=== PATIENT | female | born 1955 | race Caucasian/White ===

== ENCOUNTER 2023-10-14 14:54 | Inpatient (IN) | payer OTHER ==
[~2023-10-14] VITALS: Ht 157.5 cm; Wt 96.6 kg
[2023-10-14 15:11] VITALS: BP_SYST 156; PULSE 104; RESP 22; TEMP 98.3; O2SAT 98
[2023-10-14] MEDS ORDERED: METF-379 PO (19:19)
[2023-10-14] MEDS ORDERED: ATEN50TA PO (19:19)
[2023-10-14] MEDS: NACL 0.9% 1,000 ML IV ONE (19:48)
[2023-10-14 20:01] LABS: BASOPHILS % (AUTO) 0.5 % (0.0-2.0); EOSINOPHILS # (AUTO) 0.2 K/uL (0.0-0.4); EOSINOPHILS % (AUTO) 3.2 % (0.0-4.0); HEMATOCRIT 42.8 % (36-48); HEMOGLOBIN 14.4 g/dL (12.0-16.0); LYMPHOCYTES # (AUTO) 2.8 K/uL (1.0-5.5); LYMPHOCYTES % (AUTO) 47.4 % (20.5-51.5); MEAN CORPUSCULAR HEMOGLOBIN 31 pg (27-31); MEAN CORPUSCULAR HGB CONC 34 % (32-36); MEAN CORPUSCULAR VOLUME 91 fL (79.0-98.0); MONOCYTES # (AUTO) 0.4 K/uL (0.0-1.0); MONOCYTES % (AUTO) 7.2 % (1.7-9.3); NEUTROPHILS # (AUTO) 2.5 K/uL (1.8-7.7); NEUTROPHILS % (AUTO) 41.7 % (40.0-70.0); PLATELET COUNT (AUTO) 312 K/uL (130-430); RED BLOOD CELL COUNT(AUTO) 4.71 MIL/uL (4.2-6.2); WHITE BLOOD COUNT (AUTO) 5.9 K/uL (4.8-10.8)
[2023-10-14] MEDS ORDERED: ONDANSETRON HCL 4 MG/2 ML VIAL IVP PRN (20:15)
[2023-10-14] MEDS ORDERED: TEMAZEPAM 7.5 MG CAPSULE PO PRN (20:15)
[2023-10-14 20:17] LABS: ALBUMIN 3.7 g/dL (3.4-4.8); CALCIUM 9.2 mg/dL (8.4-11.0); CREATININE 0.96 mg/dL (0.55-1.30); POTASSIUM 3.6 mmol/L (3.5-5.1); TOTAL BILIRUBIN 0.5 mg/dL (0.0-1.0); TOTAL PROTEIN, SERUM 7.3 g/dL (6.4-8.3)
[2023-10-14 20:36] LABS: INR 0.9 (0.8-1.2); PROTHROMBIN TIME 9.9 SECS (9.5-12.5)
[2023-10-14 22:10] VITALS: BP_SYST 120; PULSE 69; RESP 18; TEMP 98.8; O2SAT 98
[2023-10-15] VITALS (8 sets, daily range): BP systolic 117–146; PULSE 63–78; RESP 16–18; TEMP 97.1–98.8; O2SAT 96–99
[2023-10-15] MEDS: D5/0.45 NS 1,000 ML IV SCH (07:45)
[2023-10-15 08:59] LABS: BILIRUBIN,URINE NEGATIVE (NEGATIVE); BLOOD, URINE NEGATIVE (NEGATIVE); CLARITY/URINE CLEAR (CLEAR); COLOR,URINE YELLOW (YELLOW); GLUCOSE,URINE NEGATIVE (NEGATIVE); KETONES,URINE NEGATIVE (NEGATIVE); LEUKOCYTE ESTERASE ,URINE TRACE (NEGATIVE); NITRITE, URINE NEGATIVE (NEGATIVE); PROTEIN URINE NEGATIVE (NEGATIVE); UROBILINOGEN,URINE 0.2 (0.2-1.0)
[2023-10-15 09:23] LABS: BACTERIA,URINE None Seen /HPF (None Seen); RBC,URINE 0-3 /HPF (0-3)
[2023-10-15 09:24] LABS: CALCIUM OXALATE CRYSTALS,UR 0-10 /HPF (None Seen)
[2023-10-15] MEDS: metFORMIN HCL 500 MG TABLET PO ONE (14:45)
[2023-10-15] MEDS: ATENOLOL 50 MG TABLET (TENORMIN) PO ONE (14:45)
[2023-10-15] MEDS ORDERED: SEVOFLURANE 15 MIN GAS INH ONE (16:30)
[2023-10-15] MEDS ORDERED: NS IRRIG SOLN 1000 ML IR ONE (16:30)
[2023-10-15] MEDS ORDERED: LR 1,000 ML IV.SOLN IV ONE (16:30)
[2023-10-15] MEDS ORDERED: ceFAZolin SODIUM 2 GM VIAL ONE (16:30)
[2023-10-15] MEDS ORDERED: SUCCINYLCHOLINE CHLORIDE 20 MG/ML(QUELICIN) ONE (16:30)
[2023-10-15] MEDS ORDERED: WATER FOR IRRIGATION,STERILE 1,000 ML IRRIG.SOLN IR ONE (16:30)
[2023-10-15] MEDS ORDERED: METOCLOPRAMIDE HCL 10 MG/2 ML VIAL ONE (16:30)
[2023-10-15] MEDS ORDERED: BUPIVACAINE /PF 0.25% 30 ML VIAL INJ ONE (16:30)
[2023-10-15] MEDS ORDERED: DEXAMETHASONE SOD PHOSPHATE 4 MG/ML VIAL ONE (16:30)
[2023-10-15] MEDS ORDERED: KETOROLAC TROMETHAMINE 30 MG VIAL ONE (16:30)
[2023-10-15] MEDS ORDERED: ONDANSETRON HCL 4 MG/2 ML VIAL ONE (16:30)
[2023-10-15] MEDS ORDERED: PROPOFOL 200MG/ 20ML VIAL (DIPRIVAN) IV ONE (16:30)
[2023-10-15] MEDS: HYDROmorphone 2 MG/ML VIAL ONE (16:31)
[2023-10-15] MEDS ORDERED: ONDANSETRON HCL 4 MG/2 ML VIAL IVP PRN (17:30)
[2023-10-15] MEDS ORDERED: NALOXONE HCL 0.4 MG/ML AMP (NARCAN) IVP PRN (17:30)
[2023-10-15] MEDS ORDERED: HYDROmorphone 1 MG/ML INJ. CARTRIDGE IVP PRN (17:30)
[2023-10-15] MEDS ORDERED: METOCLOPRAMIDE HCL 10 MG/2 ML VIAL IVP PRN (17:30)
[2023-10-15] MEDS ORDERED: MORPHINE 4 MG INJ. 4 MG/ML VIAL IVP PRN ×2 (17:30)
[2023-10-15] MEDS: CEFAZOLIN 2 GM IVPB PREMIX 50 ML IV SCH (22:30)
[2023-10-15] MEDS: MORPHINE 2 MG/ML INJ. SYRINGE IVP PRN (22:54)
[2023-10-16] VITALS: BP_SYST 104; PULSE 68; RESP 16; TEMP 97.2; O2SAT 95
[2023-10-16 07:46] LABS: BASOPHILS % (AUTO) 0.2 % (0.0-2.0); EOSINOPHILS % (AUTO) 0.2 % (0.0-4.0); HEMATOCRIT 32.9 % (36-48); HEMOGLOBIN 10.8 g/dL (12.0-16.0); LYMPHOCYTES # (AUTO) 1.5 K/uL (1.0-5.5); LYMPHOCYTES % (AUTO) 18.9 % (20.5-51.5); MEAN CORPUSCULAR HEMOGLOBIN 30 pg (27-31); MEAN CORPUSCULAR HGB CONC 33 % (32-36); MEAN CORPUSCULAR VOLUME 93 fL (79.0-98.0); MONOCYTES # (AUTO) 0.7 K/uL (0.0-1.0); MONOCYTES % (AUTO) 8.6 % (1.7-9.3); NEUTROPHILS # (AUTO) 5.8 K/uL (1.8-7.7); NEUTROPHILS % (AUTO) 72.1 % (40.0-70.0); PLATELET COUNT (AUTO) 243 K/uL (130-430); RED BLOOD CELL COUNT(AUTO) 3.55 MIL/uL (4.2-6.2); RED CELL DISTRIBUTION WIDTH 14.1 % (9.0-15.0)
[2023-10-16 08:00] VITALS: BP_SYST 132; PULSE 81; RESP 16; TEMP 97.8; O2SAT 93
[2023-10-16 08:26] LABS: CALCIUM 8.3 mg/dL (8.4-11.0); CREATININE 0.97 mg/dL (0.55-1.30); POTASSIUM 5.5 mmol/L (3.5-5.1)
[2023-10-16] MEDS: HYDROcodone/ACETAMIN 10-325 MG TAB PO PRN (09:28)
[2023-10-16] MEDS: ATENOLOL 50 MG TABLET (TENORMIN) PO SCH (09:28)
[2023-10-16] MEDS: metFORMIN HCL 500 MG TABLET PO SCH (09:29)
[2023-10-16] MEDS: ASPIRIN 81 MG TAB.CHEW PO ONE (09:30)
[2023-10-16] MEDS ORDERED: MELO-89 PO (10:45)
[2023-10-16 12:13] VITALS: O2SAT 98
[2023-10-16 12:36] VITALS: BP_SYST 110; PULSE 72; RESP 16; TEMP 98.1; O2SAT 98
[2023-10-16 14:03] VITALS: BP_SYST 110; PULSE 72; RESP 12; TEMP 98.1; O2SAT 98
[2023-10-16 16:50] VITALS: BP_SYST 119; PULSE 70; RESP 18; TEMP 97.3; O2SAT 100
[2023-10-16] MEDS ORDERED: ASPIRIN 81 MG TAB.CHEW PO SCH (21:00)
== END 2023-10-16 15:50 | disposition home health service (06) | DRG 482 ==
LOC: SED 14:54 → SMU 20:02
PROVIDERS: ADMIT Specialist; ATTEND Specialist
PROC: 0QS704Z Reposition Left Upper Femur with Internal Fixation Device, Open Approach (ICD-10-PCS; principal; 2023-10-15 16:50)
DX: S72.012A Unspecified intracapsular fracture of left femur, initial encounter for closed fracture (principal); E66.9 Obesity, unspecified; I10 Essential (primary) hypertension; W01.0XXA Fall on same level from slipping, tripping and stumbling without subsequent striking against object, initial encounter; E11.9 Type 2 diabetes mellitus without complications; Z96.653 Presence of artificial knee joint, bilateral; Y93.89 Activity, other specified; Y92.89 Other specified places as the place of occurrence of the external cause; Y99.8 Other external cause status; Z87.891 Personal history of nicotine dependence; Z79.84 Long term (current) use of oral hypoglycemic drugs; Z90.710 Acquired absence of both cervix and uterus; Z68.39 Body mass index [BMI] 39.0-39.9, adult; Z79.899 Other long term (current) drug therapy; Z88.8 Allergy status to other drugs, medicaments and biological substances
CPT/HCPCS: 36415; 71045; 72170-TC; 72192-TC; 73502; 73552; 76001; 80048; 80053; 81000; 81001; 81015; 85025; 85610; 86886; 86900; 86901; 87081; 93005; 97116-GP; 97163-GP; 99285; A4649; C1713; C1769; J0330; J0690; J1100; J1170; J1885; J2270; J2405; J2704; J2765; J3490; J7120